=== PATIENT | female | born 1970 | race Caucasian/White ===

== ENCOUNTER 2016-10-17 01:07 | Emergency (ER) | payer OTHER ==
[2016-10-17 01:53] LABS: BASOPHILS 0.5 % (0.0-2.0); EOSINOPHILS 2.3 % (0-7); HEMATOCRIT 31.8 % (36.0-48.0); HEMOGLOBIN 9.5 g/dL (12-16); IMMATURE GRANULOCYTES 0.7 % (0-5); MCH 20.1 pg (26.0-34.0); MCHC 29.9 g/dL (31.0-37.0); MCV 67.4 fL (80.0-100.0); MEAN PLATELET VOLUME 10.4 fL (7.4-10.4); MONOCYTES 4.7 % (2-11); NEUTROPHILS 59.8 % (40-80); PLATELET COUNT 486 10x3/uL (130-400); RBC 4.72 10x6/uL (4.00-5.40); RDW 17.6 % (11.5-14.5); WBC 10.7 10x3/uL (4.8-10.8)
[2016-10-17 02:24] LABS: CALC OSMOLALITY 285 mosm/kg (275-300); CALCIUM 9.2 mg/dL (8.5-10.1); CARBON DIOXIDE 23.8 mmol/L (21.0-32.0); CHLORIDE - SERUM 104 mmol/L (98-107); GLUCOSE 129 mg/dL (74-106); POTASSIUM - SERUM 3.7 mmol/L (3.5-5.1); SODIUM 142 mmol/L (136-145); UREA NITROGEN 16 mg/dL (7-18); eGFR NON AFRICAN AMERICAN 64 mL/min (90-120)
[2016-10-17 02:25] LABS: TROPONIN-I < 0.017 ng/mL (0.000-0.060)
== END 2016-10-17 04:10 | disposition home or self-care (01) ==
LOC: EDBD 01:07 → D.ER 01:07
PROVIDERS: Emergency Medicine
DX: F41.9 Anxiety disorder, unspecified (principal)

== ENCOUNTER 2018-08-18 01:59 | Emergency (ER) | payer SELFPAY ==
[~2018-08-18] VITALS: Ht 167.6 cm; Wt 100.0 kg
[2018-08-18 02:07] VITALS: Ht 167.6 cm; Wt 100.0 kg
[2018-08-18 03:09] LABS: BASOPHILS 0.1 % (0-2); EOSINOPHILS 0.5 % (0-7); HEMATOCRIT 28.5 % (36.0-48.0); HEMOGLOBIN 8.6 g/dL (12-16); IMMATURE GRANULOCYTES 0.4 % (0-5); LYMPHOCYTES 18.6 % (15-50); MCHC 30.2 g/dL (31.0-37.0); MCV 64.2 fL (80.0-100.0); MONOCYTES 5.1 % (2-11); NEUTROPHILS 75.3 % (40-80); RBC 4.44 10x6/uL (4.00-5.40); RDW 18.6 % (11.5-14.5); WBC 8.1 10x3/uL (4.8-10.8)
[2018-08-18 03:14] LABS: MCH 19.4 pg (26.0-34.0); PLATELET COUNT 384 10x3/uL (130-400)
[2018-08-18 03:24] LABS: ALBUMIN 3.2 g/dL (3.4-5.0); ANION GAP 16.5 mmol/L (8-16); BILIRUBIN - TOTAL 0.29 mg/dL (0.2-1.3); CALCIUM 7.9 mg/dL (8.5-10.1); POTASSIUM - SERUM 3.5 mmol/L (3.5-5.1); PROTEIN - SERUM 7.4 g/dL (6.4-8.2)
[2018-08-18] MEDS ORDERED: PHENERGAN DM SYR5 ML PO (05:17)
[2018-08-18] MEDS ORDERED: OMNICEF300 MG PO (05:17)
[2018-08-18 05:55] VITALS: BP 142/81
== END 2018-08-18 05:56 | disposition home or self-care (01) ==
LOC: D.ER 01:59
PROVIDERS: Family Medicine
DX: J18.9 Pneumonia, unspecified organism (principal); R09.89 Other specified symptoms and signs involving the circulatory and respiratory systems

== ENCOUNTER 2019-05-14 17:15 | Emergency (ER) | payer MEDICAID ==
[~2019-05-14] VITALS: Ht 167.6 cm; Wt 100.0 kg
[~2019-05-14 17:15] MED LIST: OMNICEF300 MG PO; PHENERGAN DM SYR5 ML PO
[2019-05-14 17:32] VITALS: Ht 167.6 cm; Wt 100.0 kg
[2019-05-14 18:40] LABS: BASOPHILS 0.6 % (0-2); EOSINOPHILS 2.2 % (0-7); HEMATOCRIT 28.2 % (36.0-48.0); HEMOGLOBIN 8.1 g/dL (12-16); IMMATURE GRANULOCYTES 0.6 % (0-5); LYMPHOCYTES 37.1 % (15-50); MCHC 28.7 g/dL (31.0-37.0); MCV 63.4 fL (80.0-100.0); MEAN PLATELET VOLUME 9.7 fL (7.4-10.4); MONOCYTES 5.1 % (2-11); NEUTROPHILS 54.4 % (40-80); RBC 4.45 10x6/uL (4.00-5.40); RDW 18.6 % (11.5-14.5); WBC 10.9 10x3/uL (4.8-10.8)
[2019-05-14 18:41] LABS: MCH 18.2 pg (26.0-34.0); PLATELET COUNT 516 10x3/uL (130-400)
[2019-05-14 18:49] LABS: CALC OSMOLALITY 281 mosm/kg (275-300); CALCIUM 8.8 mg/dL (8.5-10.1); CARBON DIOXIDE 29.7 mmol/L (21.0-32.0); CHLORIDE - SERUM 104 mmol/L (98-107); CREATININE - SERUM 0.8 mg/dL (0.6-1.3); GLUCOSE 105 mg/dL (74-106); POTASSIUM - SERUM 4.4 mmol/L (3.5-5.1); SODIUM 141 mmol/L (136-145); UREA NITROGEN 15 mg/dL (7-18); eGFR NON AFRICAN AMERICAN 81 mL/min (90-120)
[2019-05-14 18:55] LABS: ALBUMIN 3.3 g/dL (3.4-5.0); ALKALINE PHOSPHATASE 84 U/L (46-116); ALT (SGPT) 34 U/L (10-68); BILIRUBIN - TOTAL 0.42 mg/dL (0.2-1.3); PROTEIN - SERUM 7.3 g/dL (6.4-8.2)
[2019-05-14 19:22] LABS: % SATURATION 3 % (15-55); IRON 16 ug/dl (35-150); TOTAL IRON BIND CAPACITY 419 ug/dl (260-445); UNSAT IRON BIND CAPACITY 403 ug/dl (150-375)
[2019-05-14] MEDS ORDERED: FERROUS GLUCON324 MG PO (19:31)
[2019-05-14 19:40] VITALS: BP 159/87
== END 2019-05-14 19:42 | disposition home or self-care (01) ==
LOC: D.ER 17:15
PROVIDERS: Family Medicine
DX: I10 Essential (primary) hypertension (principal); R51 Headache; D50.9 Iron deficiency anemia, unspecified

== ENCOUNTER 2020-01-17 09:34 | Emergency (ER) | payer MEDICAID ==
[~2020-01-17] VITALS: Ht 167.6 cm; Wt 100.0 kg
[~2020-01-17 09:34] MED LIST changes: +FERROUS GLUCON324 MG PO
[2020-01-17 09:41] VITALS: Ht 167.6 cm; Wt 100.0 kg
[2020-01-17 10:33] LABS: BASOPHILS 0.8 % (0-2); EOSINOPHILS 1.8 % (0-7); HEMATOCRIT 35.7 % (36.0-48.0); HEMOGLOBIN 10.8 g/dL (12-16); IMMATURE GRANULOCYTES 0.3 % (0-5); LYMPHOCYTES 28.6 % (15-50); MCH 21.2 pg (26.0-34.0); MCHC 30.3 g/dL (31.0-37.0); MEAN PLATELET VOLUME 10.3 fL (7.4-10.4); MONOCYTES 4.2 % (2-11); NEUTROPHILS 64.3 % (40-80); PLATELET COUNT 444 10x3/uL (130-400); RDW 18.4 % (11.5-14.5); WBC 7.3 10x3/uL (4.8-10.8)
[2020-01-17 10:44] LABS: HCG URINE NEGATIVE (NEGATIVE)
[2020-01-17 10:45] LABS: BILIRUBIN NEGATIVE (NEGATIVE); GLUCOSE NEGATIVE (NEGATIVE); KETONE SMALL mg/dL (NEGATIVE); NITRITE NEGATIVE (NEGATIVE); UROBILINOGEN NORMAL (NORMAL)
[2020-01-17 10:46] LABS: BACTERIA MODERATE /hpf (NEGATIVE); EPITHELIAL CELLS 0-5 /hpf (0-5); RED CELLS - URINE NONE SEEN /hpf (0-5); WHITE CELLS - URINE 0-5 /hpf (NEGATIVE)
[2020-01-17 10:51] LABS: CALC OSMOLALITY 281 mosm/kg (275-300); CALCIUM 9.6 mg/dL (8.5-10.1); CARBON DIOXIDE 28.2 mmol/L (21.0-32.0); CHLORIDE - SERUM 103 mmol/L (98-107); CREATININE - SERUM 1.1 mg/dL (0.6-1.3); GLUCOSE 130 mg/dL (74-106); POTASSIUM - SERUM 4.4 mmol/L (3.5-5.1); SODIUM 140 mmol/L (136-145); UREA NITROGEN 16 mg/dL (7-18); eGFR NON AFRICAN AMERICAN 56 mL/min (90-120)
[2020-01-17 10:57] LABS: ALBUMIN 3.9 g/dL (3.4-5.0); ALKALINE PHOSPHATASE 84 U/L (30-120); ALT (SGPT) 21 U/L (10-68); AMYLASE - SERUM 43 U/L (25-115); BILIRUBIN - TOTAL 0.76 mg/dL (0.2-1.3); LIPASE 80 U/L (73-393); PROTEIN - SERUM 7.9 g/dL (6.4-8.2); TROPONIN-I < 0.017 ng/mL (0.000-0.060)
[2020-01-17] MEDS ORDERED: DOXYCYCLINE HY100 M2 PO (12:58)
[2020-01-17 14:51] VITALS: BP 121/82
== END 2020-01-17 14:52 | disposition home or self-care (01) ==
LOC: D.ER 09:34
PROVIDERS: Family Medicine
DX: R10.9 Unspecified abdominal pain (principal); D64.9 Anemia, unspecified; R03.0 Elevated blood-pressure reading, without diagnosis of hypertension; K76.0 Fatty (change of) liver, not elsewhere classified; R19.8 Other specified symptoms and signs involving the digestive system and abdomen; N89.8 Other specified noninflammatory disorders of vagina; R73.9 Hyperglycemia, unspecified

== ENCOUNTER 2020-11-27 07:48 | Emergency (ER) | payer BC ==
[~2020-11-27] VITALS: Ht 167.6 cm; Wt 106.4 kg
[~2020-11-27 07:48] MED LIST changes: +DOXYCYCLINE HY100 M2 PO
[2020-11-27 07:53] VITALS: Ht 167.6 cm; Wt 106.4 kg
[2020-11-27] MEDS ORDERED: TRAZODONE HCL100 MG (08:09)
[2020-11-27] MEDS ORDERED: LEXAPRO10 MG (08:09)
[2020-11-27 08:12] LABS: HEMOGLOBIN 8.9 g/dL (12-16); LYMPHOCYTES 25.2 % (15-50); MCHC 30.9 g/dL (31.0-37.0); MCV 60.6 fL (80.0-100.0); MEAN PLATELET VOLUME 7.7 fL (7.4-10.4); MONOCYTES 5.5 % (2-11); NEUTROPHILS 67.3 % (40-80); PLATELET COUNT 457 10x3/uL (130-400); RBC 4.78 10x6/uL (4.00-5.40); RDW 19.6 % (11.5-14.5); WBC 10.5 10x3/uL (4.8-10.8)
[2020-11-27 08:15] LABS: MCH 18.7 pg (26.0-34.0)
[2020-11-27 08:23] LABS: BILIRUBIN NEGATIVE (NEGATIVE); HCG URINE NEGATIVE (NEGATIVE); KETONE SMALL mg/dL (NEGATIVE); NITRITE NEGATIVE (NEGATIVE); UROBILINOGEN NORMAL mg/dL (< 2)
[2020-11-27 08:29] LABS: CALC OSMOLALITY 278 mosm/kg (275-300); CALCIUM 9.2 mg/dL (8.5-10.1); CARBON DIOXIDE 26.3 mmol/L (21.0-32.0); CHLORIDE - SERUM 101 mmol/L (98-107); CREATININE - SERUM 0.8 mg/dL (0.6-1.3); GLUCOSE 126 mg/dL (74-106); POTASSIUM - SERUM 3.8 mmol/L (3.5-5.1); SODIUM 138 mmol/L (136-145); UREA NITROGEN 14 mg/dL (7-18); eGFR NON AFRICAN AMERICAN 81 mL/min (90-120)
[2020-11-27 08:35] LABS: ALBUMIN 3.6 g/dL (3.4-5.0); ALKALINE PHOSPHATASE 69 U/L (30-120); ALT (SGPT) 14 U/L (10-68); BILIRUBIN - TOTAL 0.62 mg/dL (0.2-1.3); LIPASE 61 U/L (73-393); PROTEIN - SERUM 7.2 g/dL (6.4-8.2)
[2020-11-27 10:32] VITALS: BP 162/72
== END 2020-11-27 10:33 | disposition home or self-care (01) ==
LOC: D.ER 07:48
PROVIDERS: Student in an Organized Health Care Education/Training Program
DX: R10.30 Lower abdominal pain, unspecified (principal)